=== PATIENT | male | born 1995 | race Caucasian/White ===

== ENCOUNTER 2023-09-02 12:01 | Emergency (ER) | payer SELFPAY ==
[2023-09-02] MEDS: Acetaminophen 500 MG Tab PO ONE (12:38)
[2023-09-02] MEDS: Ketorolac 30 MG/ML SDV IVPUSH ONE (12:38)
[2023-09-02] MEDS: Sodium Chloride 0.9% 1,000 ML IV ONE ×4 (12:39→15:32)
[2023-09-02 12:47] LABS: BASOPHILS ABSOLUTE AUTO 0.03 K/uL (0.00-0.20); BASOPHILS PERCENT AUTO 0.3 % (0.0-1.0); EOSINOPHILS ABSOLUTE AUTO 0.03 K/uL (0.00-0.45); EOSINOPHILS PERCENT AUTO 0.3 % (0.0-6.0); HEMOGLOBIN 15.6 g/dL (14.0-18.0); IMMATURE GRAN ABSOLUTE AUTO 0.04 K/uL (0.00-0.05); IMMATURE GRAN PERCENT AUTO 0.4 % (0.0-0.4); LYMPHOCYTES ABSOLUTE AUTO 0.76 K/uL (1.00-4.80); LYMPHOCYTES PERCENT AUTO 6.7 % (24.0-44.0); MEAN CORPUSCULAR HEMOGLOBIN 28.9 pg (28.0-32.0); MEAN CORPUSCULAR HGB CONC 34.7 g/dL (32.0-36.0); MEAN CORPUSCULAR VOLUME 83.3 fL (83.0-99.0); MEAN PLATELET VOLUME 10.9 fL (9.4-12.4); MONOCYTES ABSOLUTE AUTO 0.32 K/uL (0.00-0.80); MONOCYTES PERCENT AUTO 2.8 % (0.0-8.0); NEUTROPHILS ABSOLUTE AUTO 10.17 K/uL (1.80-7.70); NEUTROPHILS PERCENT AUTO 89.5 % (41.0-71.0); PLATELET COUNT,PLT 211 K/uL (150-400); WHITE BLOOD CELL COUNT,WBC 11.35 K/uL (3.9-11.3)
[2023-09-02 13:23] LABS: CORONAVIRUS COVID-19 NAA NEGATIVE (NEGATIVE); INFLUENZA A NAA NEGATIVE (NEGATIVE); INFLUENZA B NAA NEGATIVE (NEGATIVE)
[2023-09-02 13:32] LABS: LACTIC ACID 2.6 mmol/L (0.4-2.0)
[2023-09-02 13:37] LABS: ALANINE AMINOTRANSFERASE,ALT 50 IU/L (14-63); ALKALINE PHOSPHATASE 76 U/L (46-116); ASPARTATE AMNIOTRANSFERASE,AST 36 IU/L (15-37); BILIRUBIN TOTAL 0.5 mg/dL (0.2-1.0); BLOOD UREA NITROGEN,BUN 13 mg/dL (7.0-18.0); CALCIUM 8.8 mg/dL (8.5-10.1); CARBON DIOXIDE,CO2 24.5 mmol/L (21.0-32.0); CHLORIDE,CL 104 mmol/L (98-107); CREATININE 1.3 mg/dL (0.8-1.3); EST CRCL DRUG DOSING (CG) 90.91 mL/min; GLUCOSE RANDOM 151 mg/dL (74-106); MAGNESIUM 1.3 mg/dL (1.8-2.4); POTASSIUM,K 4.1 mmol/L (3.5-5.1); SODIUM,NA 140 mmol/L (136-148); TSH ULTRASENSITIVE 1.38 uIU/mL (0.36-3.74)
[2023-09-02 13:38] LABS: ESTIMATED GFR 77 mL/min (>60)
[2023-09-02] MEDS: Iopamidol 755 MG/ML 500 ML Multipack Bottle IVPUSH STA (14:12)
[2023-09-02] MEDS: Magnesium Sulfate/Water 2 GM in Premix Bag 1 BAG IV ONE (14:18)
[2023-09-02 16:36] VITALS: BP 113/62; PULSE 107
== END 2023-09-02 16:33 | disposition home or self-care (01) ==
LOC: MW.ED 12:01
DX: R50.9 Fever, unspecified (principal); I10 Essential (primary) hypertension; E66.9 Obesity, unspecified; Z79.899 Other long term (current) drug therapy; Z75.8 Other problems related to medical facilities and other health care; Z68.42 Body mass index [BMI] 45.0-49.9, adult
CPT/HCPCS: 0240U; 36415; 71045; 71275; 80053; 83605; 83735; 84443; 84484; 85025; 87040; 87651; 93005; 96361; 96365; 96375; 99285; A9270; J1885; J3475; J7030; Q9967; 93010; 99284